=== PATIENT | male | born 1960 | race Caucasian/White ===

== ENCOUNTER 2022-04-19 15:58 | Emergency (ER) | payer BC | END 2022-04-19 17:15 | disposition home or self-care (01) | LOC: JP.ED 15:58 | DX: R19.7 Diarrhea, unspecified (principal); L03.012 Cellulitis of left finger; J44.9 Chronic obstructive pulmonary disease, unspecified; I10 Essential (primary) hypertension; Z90.49 Acquired absence of other specified parts of digestive tract; Z79.899 Other long term (current) drug therapy; Z79.82 Long term (current) use of aspirin; Z88.5 Allergy status to narcotic agent | CPT/HCPCS: 99282; 99283 ==

== ENCOUNTER 2022-04-25 12:49 | Emergency (ER) | payer BC | END 2022-04-25 14:40 | disposition home or self-care (01) | LOC: JP.ED 12:49 | DX: R19.7 Diarrhea, unspecified (principal); F17.210 Nicotine dependence, cigarettes, uncomplicated; I10 Essential (primary) hypertension; J44.9 Chronic obstructive pulmonary disease, unspecified; Z88.5 Allergy status to narcotic agent; Z79.82 Long term (current) use of aspirin | CPT/HCPCS: 87046; 87077; 87177; 87209; 87493; 87899; 89055; 99284 ==

== ENCOUNTER 2023-04-08 19:59 | Emergency (ER) | payer BC ==
[2023-04-08] MEDS ORDERED: Lidocaine 1% 5 ML VIAL INJECT ONE (20:26)
[2023-04-08] MEDS ORDERED: Bacitracin Oint 1 GM U/D Packet TOP ONE (20:26)
[2023-04-08] MEDS ORDERED: Diphtheria,Pertussis(Acell),Tetanus Vaccine 0.5 ML Syringe IM ONE (21:00)
== END 2023-04-08 21:26 | disposition home or self-care (01) ==
LOC: JP.ED 19:59
DX: S61.215A Laceration without foreign body of left ring finger without damage to nail, initial encounter (principal); I10 Essential (primary) hypertension; J44.9 Chronic obstructive pulmonary disease, unspecified; Z88.2 Allergy status to sulfonamides; Z79.899 Other long term (current) drug therapy; Z79.02 Long term (current) use of antithrombotics/antiplatelets; Z23 Encounter for immunization; W26.0XXA Contact with knife, initial encounter
CPT/HCPCS: 12001; 90471; 90715; 99282-25